=== PATIENT | male | born 1960 | race Two or more races ===

== ENCOUNTER 2020-03-04 15:24 | Outpatient (CLI) | payer OTHER | END 2020-03-04 15:39 | disposition home or self-care (01) | LOC: LAB 15:24 | PROVIDERS: ATTEND Internal Medicine Geriatric Medicine | DX: N18.9 Chronic kidney disease, unspecified (principal) ==

== ENCOUNTER → 2020-03-08 | Outpatient (CLI) | payer OTHER | END | disposition home or self-care (01) | LOC: TOM 11:15 | PROVIDERS: ATTEND Internal Medicine Geriatric Medicine | DX: R31.21 Asymptomatic microscopic hematuria (principal); N20.0 Calculus of kidney ==